=== PATIENT | female | born 1985 | race Asian ===

== ENCOUNTER 2018-04-21 12:29 | Inpatient (IN) | payer OTHER ==
[~2018-04-21] VITALS: Ht 157.5 cm; Wt 84.4 kg
[~2018-04-21 12:29] MED LIST: FERR325E14 PO; IBUP-974 PO
[2018-04-21] MEDS ORDERED: OXYTOCIN 20 UNITS in LACTATED RINGERS 1,000 ML IV SCH (13:12)
[2018-04-21] MEDS ORDERED: NALBUPHINE 10 MG/ML AMP IVP PRN (13:15)
[2018-04-21] MEDS ORDERED: METHYLERGONOVINE 0.2 MG/ML AMP IM PRN (13:15)
[2018-04-21] MEDS ORDERED: OXYTOCIN 10 UNITS/ML VIAL IM SCH (13:15)
[2018-04-21] MEDS ORDERED: PROMETHAZINE 25 MG/ML VIAL IVP PRN (13:15)
[2018-04-21] MEDS ORDERED: PREN-546 PO (13:16)
[2018-04-21 13:55] LABS: BASOPHILS % (AUTO) 0.4 % (0.0-2.0); EOSINOPHILS % (AUTO) 0.5 % (0.0-4.0); HEMATOCRIT 35.1 % (36-48); HEMOGLOBIN 11.7 g/dL (12.0-16.0); LYMPHOCYTES # (AUTO) 1.9 K/uL (2.5-16.5); LYMPHOCYTES % (AUTO) 24.9 % (20.5-51.1); MEAN CORPUSCULAR HEMOGLOBIN 31 pg (27-31); MEAN CORPUSCULAR HGB CONC 33 g/dL (33-37); MEAN CORPUSCULAR VOLUME 94.7 fL (80-94); MONOCYTES # (AUTO) 0.6 K/uL (0.8-1.0); MONOCYTES % (AUTO) 8.2 % (1.7-9.3); PLATELET COUNT (AUTO) 175 K/uL (140-450); RED BLOOD CELL COUNT(AUTO) 3.71 MIL/uL (4.20-5.40); RED CELL DISTRIBUTION WIDTH 13.5 % (11.6-13.7); WHITE BLOOD COUNT (AUTO) 7.6 K/uL (4.8-10.8)
[2018-04-21 14:48] LABS: APPEARANCE,URINE SL CLOUDY (CLEAR); BILIRUBIN,URINE NEGATIVE (NEGATIVE); BLOOD, URINE 2+ (NEGATIVE); COLOR,URINE YELLOW (YELLOW); LEUKOCYTE ESTERASE ,URINE 2+ (NEGATIVE); NITRITE, URINE NEGATIVE (NEGATIVE); UGLUCOSE NEGATIVE (NEGATIVE)
[2018-04-21] MEDS: LACTATED RINGERS 1,000 ML IV SCH ×3 (15:15→20:28)
[2018-04-21 15:42] LABS: ALBUMIN 2.7 g/dL (3.4-5.0); CARBON DIOXIDE 20.1 mmol/L (21-32); CREATININE 0.6 mg/dL (0.6-1.3); TOTAL BILIRUBIN 0.1 mg/dL (0.0-1.0)
[2018-04-21 15:47] LABS: RBC,URINE 0-5 (RARE) /HPF (0-5); WBC,URINE 20-60 /HPF (0-5)
[2018-04-21 16:25] LABS: ANION GAP 15.7 (8-16); POTASSIUM 3.8 mmol/L (3.5-5.1)
[2018-04-21] MEDS ORDERED: BUPIVACAINE 0.125%/NS PREMIX 250 ML ONE (21:22)
[2018-04-22] MEDS ORDERED: OXYTOCIN 10 UNITS/ML VIAL ONE (00:33)
[2018-04-22] MEDS ORDERED: LIDOCAINE MPF 1% - 5 mL VIAL 10 ML ONE (00:43)
[2018-04-22] MEDS ORDERED: oxyCODONE/APAP 5/325 MG 1 TAB TAB PO PRN (01:20)
[2018-04-22] MEDS ORDERED: METHYLERGONOVINE 0.2 MG/ML AMP IM PRN (01:20)
[2018-04-22] MEDS ORDERED: OXYTOCIN 10 UNITS/ML VIAL IM PRN (01:20)
[2018-04-22] MEDS ORDERED: BENZOCAINE/MENTHOL 20%-0.5% 60 GM CAN TP PRN (01:20)
[2018-04-22] MEDS ORDERED: MEASLES, MUMPS, AND RUBELLA 1 VIAL SQVAC PRN (01:20)
[2018-04-22] MEDS ORDERED: TEMAZEPAM 15 MG CAP PO PRN (01:20)
[2018-04-22] MEDS: HYDROcodone/APAP 5/325 MG 1 TAB TAB PO PRN ×2 (01:51→07:10)
[2018-04-22] MEDS ORDERED: HYDROcodone/APAP 5/325 MG 1 TAB TAB ONE (01:53)
[2018-04-22] MEDS ORDERED: BETHANECHOL 25 MG TAB PO PRN (08:05)
--- NOTE | 2018-04-22 09:11 | NUR ---
PATIENT HAS BEEN SCREENED AND CATEGORIZED LOW NUTRITION RISK. PATIENT WILL BE SEEN WITHIN 7 DAYS OF ADMISSION. 04/28/[address]
[2018-04-22] MEDS: IBUPROFEN 800 MG TAB PO PRN ×2 (10:37→20:57)
[2018-04-22] MEDS ORDERED: DOCUSATE SOD/SENNA 50/8.6 MG 1 TAB PO SCH (21:00)
[2018-04-23 05:40] LABS: HEMATOCRIT 27.6 % (36-48); HEMOGLOBIN 9.3 g/dL (12.0-16.0)
[2018-04-23] MEDS: IBUPROFEN 800 MG TAB PO PRN ×3 (05:56→17:40)
[2018-04-23] MEDS ORDERED: GABAPENTIN 300 MG CAP PO SCH (15:10)
== END 2018-04-23 19:45 | disposition home or self-care (01) | DRG 775 ==
LOC: MLD 12:29 → OBSVTOIN 13:20 → MFCC 04-22 02:42
PROVIDERS: ADMIT Obstetrics & Gynecology; ATTEND Obstetrics & Gynecology
PROC: 10E0XZZ Delivery of Products of Conception, External Approach (ICD-10-PCS; principal; 2018-04-21)
PROC: 0KQM0ZZ Repair Perineum Muscle, Open Approach (ICD-10-PCS; 2018-04-21)
PROC: 10907ZC Drainage of Amniotic Fluid, Therapeutic from Products of Conception, Via Natural or Artificial Opening (ICD-10-PCS; 2018-04-21)
PROC: 3E0R3BZ Introduction of Anesthetic Agent into Spinal Canal, Percutaneous Approach (ICD-10-PCS; 2018-04-21)
PROC: 00HU33Z Insertion of Infusion Device into Spinal Canal, Percutaneous Approach (ICD-10-PCS; 2018-04-21)
DX: O99.89 Other specified diseases and conditions complicating pregnancy, childbirth and the puerperium (principal); Z37.0 Single live birth; Z3A.40 40 weeks gestation of pregnancy; O70.1 Second degree perineal laceration during delivery; Z82.49 Family history of ischemic heart disease and other diseases of the circulatory system; Z88.8 Allergy status to other drugs, medicaments and biological substances; M79.1 Myalgia
CPT/HCPCS: 36415; 51702; 59409; 80053; 81001; 85018; 85025; 86592; 86886; 86900; 86901; 87086; G0378; J2001; J2590; J3490; J7120